=== PATIENT | male | born 1985 | race Caucasian/White ===

== ENCOUNTER 2017-06-29 22:59 | Emergency (ER) | payer MEDICAID, SELFPAY ==
[2017-06-29 23:00] VITALS: BP 162/101; PULSE 123; RESP 16; TEMP 37.3; O2SAT 100; BMI 26.4
--- NOTE | 2017-06-29 23:10 | ED.RN ---
THIS RN GIVES PT WATER TO DRINK. PT FIANCE AT BEDSIDE. PT PLACED IN TRIAGE 2 DUE TO NO ED ROOMS BEING AVAILABLE AT THIS TIME. PT DENIES SI/HI. PT STATES, NEVERMIND, I CHANGED MY MIND AND WE ARE LEAVING. CHARGE NURSE FABIAN NOTIFIED.
--- NOTE | 2017-06-29 23:13 | ED.RN ---
THIS NURSE CONTACTED JASON HAMMOND TO INFORM THEM THE PT LEFT THE HOSPITAL AND INQUIRE IF AN OFFICER WAS COMING TO PINK SLIP THE PT. PER THE DISPATCHER, AT THIS TIME THEY WERE NOT SURE IF THEY WERE PINK SLIPPING THE PT. IF THEY DECIDE TO THEY WILL ATTEMPT TO LOCATE THE PATIENT
--- NOTE | 2017-06-29 23:14 | ED.RN ---
PT AMBULATES OUT OF DEPARTMENT WITH FIANCE.
== END 2017-06-29 23:10 | disposition left against medical advice (07) ==
LOC: ED 23:20
PROVIDERS: Emergency Provider Emergency Medicine
DX: R69 Illness, unspecified (principal)
CPT/HCPCS: 99282

== ENCOUNTER 2017-07-24 17:10 | Emergency (ER) | payer MEDICAID, SELFPAY ==
[2017-07-24 17:10] VITALS: BP 128/89; PULSE 118; RESP 16; TEMP 36.5; O2SAT 100; BMI 28.2
--- NOTE | 2017-07-24 17:11 | EKG12_ITS ---
Test Reason : CP Blood Pressure : / mmHG Vent. Rate : 117 BPM Atrial Rate : 117 BPM P-R Int : 148 ms QRS Dur : 084 ms QT Int : 326 ms P-R-T Axes : 062 088 039 degrees QTc Int : 454 ms Sinus tachycardia Otherwise normal ECG Confirmed by HERNANDEZ LAGUERRE, GORGE ([id number]), deputy editor in chief JORDAN MATIAS ([id number] on 07/27/2017 11:46:12 AM Referred By: MARIAMA/PHILL Confirmed By:GORGE NG MD
--- NOTE | 2017-07-24 17:54 | ED.RN ---
PT ARRIVED TO ED FOR CHEST PAIN. PT WAS TAKEN STRAIGHT TO A ROOM AND ASSESSED. EKG OBTAINED AND SECONDARY STARTED. NURSE WAS ABOUT TO PLACE AN IV. PT BECAME RESTLESS AND ASKED IF IV WAS NECESSARY. PT TOLD THAT CHEST PAINS TYPICALLY REQUIRED IV FOR BLOOD DRAWS. PT THEN RAPIDLY EXITED DEPARTMENT. GIRL FRIENDS APOLOGIZED ABOUT HIS BEHAVIOR. WE EXPLAINED NORMAL PROTOCOL FOR CHEST PAIN ARRIVED TO THE ED TO GIRL FRIENDS AND INSTRUCTED HER TO RETURN IF SYMPTOMS BECAME WORSE. DERECK MALLOY RN.
== END 2017-07-24 17:54 | disposition left against medical advice (07) ==
LOC: ED 17:21
PROVIDERS: Emergency Provider Emergency Medicine
DX: R69 Illness, unspecified (principal)
CPT/HCPCS: 93005

== ENCOUNTER 2017-08-02 14:13 | Emergency (ER) | payer MEDICAID, SELFPAY ==
[2017-08-02 14:15] VITALS: BP 130/85; PULSE 131; RESP 16; TEMP 36.8; O2SAT 100; BMI 27.5
--- NOTE | 2017-08-02 14:54 | ED.VISSUMM ---
- ER Visit Summary Date of Service: 08/02/17 Chief Complaint: Need Abilify History of Present Illness: The patient is a 31 M who goes this counseling center and sees Dr. Qureshi. He was hospitalized at [facility] last month and was placed on Abilify. He states he has been this for approximately 10 weeks and has been doing the best he has done in quite some time. However, the last had a dose 3-4 days ago. States that his insurance requires a preauthorization to fill the prescription that is at [facility] at this time. Physical Examination: Vitals: Stable. Afebrile. General: Well-nourished and well-developed. Head: Normocephalic atraumatic. Neck: Supple, no lymphadenopathy. No JVD. Nontender. Cardiovascular: Regular rate and rhythm. No murmurs. Respiratory: No respiratory distress. Clear to auscultation bilaterally. Abdominal: Soft, nontender, nondistended, normal bowel sounds. No guarding, rebound, or peritoneal signs. Back: Nontender. Extremities: Nontender, no edema. Skin: Normal color, no rash. Neurologic: Alert and oriented ?3. Cranial nerves II through XII are intact. Normal strength and sensation. Psych: Normal affect. Emergency Department Course and Treatment: I called and discussed the patient with Stefan. I have submitted the preauthorization and given him a dose in the emergency department. Treatment Plan: Patient will be discharged instructions to take the prescription that I have written and that there should be a 24 hour turnaround for this. The confirmation number from Stefan is [id number]. He is instructed to follow-up the counseling center for further treatment. Disposition: To home in improved and stable condition. Impression: 1. Medication authorization. This note was generated with [employer] dictation software. It may contain incorrect words, spelling, and punctuation that were not noted in review of the chart prior to signing ED Disposition - Plan for ED Patient: Chief Complaint: Med Refill Instructions: Med Refill Prescriptions: Aripiprazole [Abilify] 20 mg PO DAILY #30 tablet Referrals: Counseling,Center [GROUP OF PHYSICIANS] - Keep [facility] appointment
[2017-08-02] MEDS: ARIPiprazole 10 MG Tablet 20 MG PO (14:57)
--- NOTE | 2017-08-02 14:58 | ED.DCSUM_ITS ---
- ER Visit Summary Date of Service: 08/02/17 Chief Complaint: Need Abilify History of Present Illness: The patient is a 31 M who goes this counseling center and sees Dr. Qureshi. He was hospitalized at [facility] last month and was placed on Abilify. He states he has been this for approximately 10 weeks and has been doing the best he has done in quite some time. However, the last had a dose 3-4 days ago. States that his insurance requires a preauthorization to fill the prescription that is at [facility] at this time. Physical Examination: Vitals: Stable. Afebrile. General: Well-nourished and well-developed. Head: Normocephalic atraumatic. Neck: Supple, no lymphadenopathy. No JVD. Nontender. Cardiovascular: Regular rate and rhythm. No murmurs. Respiratory: No respiratory distress. Clear to auscultation bilaterally. Abdominal: Soft, nontender, nondistended, normal bowel sounds. No guarding, rebound, or peritoneal signs. Back: Nontender. Extremities: Nontender, no edema. Skin: Normal color, no rash. Neurologic: Alert and oriented ?3. Cranial nerves II through XII are intact. Normal strength and sensation. Psych: Normal affect. Emergency Department Course and Treatment: I called and discussed the patient with Stefan. I have submitted the preauthorization and given him a dose in the emergency department. Treatment Plan: Patient will be discharged instructions to take the prescription that I have written and that there should be a 24 hour turnaround for this. The confirmation number from Stefan is [id number]. He is instructed to follow-up the counseling center for further treatment. Disposition: To home in improved and stable condition. Impression: 1. Medication authorization. This note was generated with [employer] dictation software. It may contain incorrect words, spelling, and punctuation that were not noted in review of the chart prior to signing ED Disposition - Plan for ED Patient: Chief Complaint: Med Refill Instructions: Med Refill Prescriptions: Aripiprazole [Abilify] 20 mg PO DAILY #30 tablet Referrals: Counseling,Center [GROUP OF PHYSICIANS] - Keep [facility] appointment
[2017-08-02 15:21] VITALS: PULSE 114; RESP 16; O2SAT 98
--- NOTE | 2017-08-02 15:21 | ED.RN ---
PT GIVEN WRITTEN AND VERBAL DISCHARGE INSTRUCTIONS AND EDUCATION ON HOME GOING PRESCRIPTION. PT VERBALIZES UNDERSTANDING. PT DENIES ANY FURTHER QUESTIONS AND IS TO FOLLOW UP WITH THE COUNSELING CENTER WITH WHOM HE HAS A SCHEDULED APPOINTMENT.
== END 2017-08-02 15:23 | disposition home or self-care (01) ==
PROVIDERS: Emergency Provider Emergency Medicine
DX: Z76.0 Encounter for issue of repeat prescription (principal); F31.9 Bipolar disorder, unspecified; F17.200 Nicotine dependence, unspecified, uncomplicated; Z79.899 Other long term (current) drug therapy
CPT/HCPCS: 99283

== ENCOUNTER 2017-08-17 17:48 | Emergency (ER) | payer MEDICAID, SELFPAY ==
[2017-08-17 17:49] VITALS: BP 142/72; PULSE 88; RESP 16; TEMP 36.8; O2SAT 100; BMI 28.5
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
--- NOTE | 2017-08-17 18:05 | ED.DEP ---
ED Disposition - Plan for ED Patient: Chief Complaint: Mental Health Instructions: ED Depression Referrals: Care Physician,No Primary [Primary Care Provider] - Additional Instructions: see counseling center at your regularly scheduled appointment
== END 2017-08-17 18:17 | disposition home or self-care (01) ==
PROVIDERS: Emergency Provider Emergency Medicine
DX: F32.9 Major depressive disorder, single episode, unspecified (principal); F31.9 Bipolar disorder, unspecified; Z79.899 Other long term (current) drug therapy; Z72.0 Tobacco use
CPT/HCPCS: 99285

== ENCOUNTER 2018-01-26 22:37 | Emergency (ER) | payer MEDICAID, SELFPAY ==
[2018-01-26 22:38] VITALS: BP 127/95; PULSE 112; RESP 16; TEMP 36.8; O2SAT 100; BMI 28.1
--- NOTE | 2018-01-26 22:52 | ED.DCSUM_ITS ---
- ER Visit Summary Date of Service: 01/26/18 Chief Complaint: [] Bipolar delusions and hallucinations active History of Present Illness: The patient is a 32 M complaining of delusions since he been off his Lamictal and Latuda for the last 2 weeks. He sometimes gets hallucinations as well. He has been on multiple antipsychotics and medications. He went off them because he was feeling better and felt like he was not sick anymore. He goes to the counseling center. No suicidal or homicidal ideations. Comes in for further evaluation and treatment to calm down these delusions. These are not new for him. Physical Examination: [] Vital signs reviewed General: Well-nourished well-developed Head: Normocephalic atraumatic Eyes: Pupils equal round and reactive to light extraocular movements intact ENT: TMs clear no hemotympanum no trauma Neck: Nontender full range of motion Cardiovascular: Regular rate rhythm no murmurs normal S1-S2 Respiratory: No distress clear to auscultation bilaterally chest nontender Abdomen: Soft nontender nondistended normal bowel sounds no masses Back: Nontender no CVA tenderness Extremities: Nontender active range of motion ?4 extremities no trauma Skin: Normal color no trauma Neuro alert oriented cranial nerves II through XII intact normal strength sensation reflexes Psych: No suicidal homicidal ideation. Positive delusions and hallucinations per patient Test Results: [] Emergency Department Course and Treatment: [] Patient has a very normal conversation with me. He does describe some delusions and states he occasionally has auditory and visual hallucinations. He requested a dose of Risperdal as he is taken this in the past. I gave him 1 dose here. He will follow-up with the counseling center. He does have Lamictal and Latuda at home. I discussed that he should consider going back on them. I do not think he needs to seek crisis or be admitted. He is going home with his significant other Treatment Plan: [] Disposition: [] Impression: [] Bipolar disorder with delusions and hallucinations This note was generated with [employer] dictation software. It may contain incorrect words, spelling, and punctuation that were not noted in review of the chart prior to signing ED Disposition - Plan for ED Patient: Chief Complaint: Mental Health Referrals: Care Physician,No Primary [Primary Care Provider] -
--- NOTE | 2018-01-26 22:52 | ED.DEP ---
ED Disposition - Plan for ED Patient: Disposition: Home or Assisted Living Chief Complaint: Mental Health Instructions: Understanding Bipolar Disorder Referrals: Care Physician,No Primary [Primary Care Provider] - Counseling,Center [GROUP OF PHYSICIANS] -
[2018-01-26] MEDS: RisperiDONE 0.5 MG Tablet 1 MG PO (22:59)
[2018-01-26 23:00] VITALS: RESP 18
== END 2018-01-26 23:05 | disposition home or self-care (01) ==
LOC: ED 22:57
PROVIDERS: Emergency Provider Emergency Medicine
DX: F31.9 Bipolar disorder, unspecified (principal); F22 Delusional disorders; R44.0 Auditory hallucinations; R44.1 Visual hallucinations; Z91.14 Patient's other noncompliance with medication regimen; Z79.899 Other long term (current) drug therapy; Z72.0 Tobacco use
CPT/HCPCS: 99284